=== PATIENT | female | born 1965 | race Caucasian/White ===

== ENCOUNTER 2020-07-23 16:41 | Outpatient (CLI) | payer OTHER, SELFPAY ==
--- NOTE | ~2020-07-23 | XR_ITS ---
EXAMINATION: XR facial bones min 3V EXAM DATE: 07/23/2020 17:38 INDICATION: Laceration to nose, pain behind eyes. TECHNIQUE: Frontal, Slava's, submentovertex and lateral projections of the facial bones. There are n o prior studies for comparison. FINDINGS: There are no acute facial bone fractures or dislocations identified. There is no subcutane ous gas. The soft tissue is unremarkable. There are no radiopaque foreign bodies. No evidence of sinus opacity although please note mild mucoperiosteal thickening is not easily identified on x-ray. IMPRESSION: 1. Unremarkable XR facial bones min 3V exam. Reviewed, dictated and finalized at location A. EMS ENG
== END 2020-07-23 16:42 | disposition home or self-care (01) ==
LOC: ANHLAB 16:43
PROVIDERS: PCP Internal Medicine; Visit Provider Internal Medicine
DX: Z20.822 Contact with and (suspected) exposure to COVID-19 (principal)
CPT/HCPCS: 36415; 70150; 86769

== ENCOUNTER 2020-10-29 12:34 | Emergency (ER) | payer OTHER, SELFPAY ==
--- NOTE | ~2020-10-29 | CT_ITS ---
EXAMINATION: CT cervical spine wo con DATE: 10/29/2020 15:25 INDICATION: Neck pain TECHNIQUE: Computed tomography (CT) of the cervical spine was performed without intravenous contrast. The dose-length product (DLP) was 161.81 mGy-cm. Automated exposure control and iterative reconstruc tion technique were employed. COMPARISON: None FINDINGS: There is straightening of the cervical spine which can be positional or due to muscular spa sm. Bone alignment is normal. There is no fracture. There is moderate loss of intervertebral disc spa ce height from C4-5 through C6-7. The vertebral body heights are maintained. The odontoid is intact. The prevertebral soft tissues are normal. Small degenerative osteophytes project from the anterior en dplates of multiple vertebral bodies. There is mild multilevel facet and uncovertebral joint osteoart hritis. IMPRESSION: 1. Moderate cervical spondylosis without acute findings. Reviewed, dictated and finalized at location B.
--- NOTE | ~2020-10-29 | CT_ITS ---
EXAMINATION: CT brain wo con INDICATION: Headache COMPARISON: None TECHNIQUE: Standard unenhanced head CT. The dose-length product (DLP) was 605.33 mGy-cm. The mA was a djusted according to patient size. Iterative reconstruction technique was employed. FINDINGS: There is no intracranial hemorrhage, acute infarction, or abnormal mass lesion. There is a prominent perivascular space in the left basal ganglia. The ventricles are normal. There is no abnorm al mass effect or midline shift. The pan-white matter differentiation is normal. The basal cisterns are patent. The orbits are normal. The paranasal sinuses, mastoids and calvarium are normal. IMPRESSION: 1. No acute intracranial abnormality. Reviewed, dictated and finalized at location B.
[2020-10-29 12:55] VITALS: BP 149/65; PULSE 62; RESP 18; TEMP 36.5; O2SAT 100
--- NOTE | 2020-10-29 15:09 | ED.HA ---
HPI - Headache General Chief Complaint: Headache Stated Complaint: stiff neck Time Seen by Provider: 10/29/20 14:45 Source: patient Mode of arrival: ambulatory Limitations: no limitations History of Present Illness HPI Narrative: This is a 55 year old female that presents to the ER for headache x 10 days. Associated with neck pain, stiff neck, and nausea. She has not taken anything for headache today. Reports only a mild headache. No known injury or trauma. Denies fever or vomiting. Related Data Allergies Allergy/AdvReac Type Severity Reaction Status Date / Time Sulfa (Sulfonamide Allergy Intermediate Rash Verified 10/29/20 15:14 Antibiotics) latex Allergy Mild RASH Verified 10/29/20 15:14 Penicillins Allergy Mild Rash Verified 08/15/20 11:50 Review of Systems Review of Systems: Narrative: CONSTITUTIONAL: Denies fever, chills EYES: Reports visual changes GASTROINTESTINAL: Reports nausea. Denies vomiting MUSCULOSKELETAL: Reports joint pain, and myalgia. NEUROLOGIC: Reports headache. Denies numbness, or weakness. All systems reviewed & are unremarkable except as noted in HPI and below PMFSH Family History Family History (Updated 08/15/20 @ 11:52 by Mony Bray MA) Father Stomach cancer Mother Cerebrovascular accident Social History Social History (Updated 08/15/20 @ 11:51 by Mony Bray MA) Smoking status: Never smoker Alcohol intake: current Substance use: never Gender identity (if verbalized by the patient): Female Exam Narrative: Exam Narrative: GENERAL: Well-appearing, well-nourished, and in no acute distress. HEAD: Normocephalic, atraumatic. EYES: PERRLA and EOMI. ENT: Nares clear, no rhinorrhea or epistaxis. Mucous membranes moist. Oropharynx without tonsillar hypertrophy exudate or other lesions. Bilateral TMs pearly pan non-bulging NECK: Supple. No adenopathy or masses. Tender to palpation of the trapezius musculature bilaterally CHEST: Clear to auscultation. No respiratory distress. No wheezes rales or rhonchi HEART: Regular rate and rhythm. No murmur heard. Normal peripheral pulses. ABDOMEN: Soft, nontender, nondistended, normal active bowel sounds. EXTREMITIES: Normal range of motion. No edema. SKIN: Warm, dry, no rash. NEURO: No focal deficits. Alert and oriented x3. Cranial nerves II through XII grossly intact. Normal [id number]. Negative Kernig and Brudzinski PSYCH: Normal mood and affect Course Vital Signs Vital signs: Vital Signs Temperature 97.7 F 10/29/20 12:55 Pulse Rate 62 10/29/20 12:55 Respiratory Rate 18 10/29/20 12:55 Blood Pressure 149/65 H 10/29/20 12:55 Pulse Oximetry 100 10/29/20 12:55 Temperature 97.7 F 10/29/20 12:55 Pulse Rate 71 10/29/20 15:14 Respiratory Rate 20 10/29/20 15:14 Blood Pressure 130/80 10/29/20 15:14 Pulse Oximetry 100 10/29/20 15:14 MDM - Headache MDM Narrative Medical decision making narrative: Patient presents to the ER for headaches over the last week and a half was also reporting some neck stiffness. She is afebrile and nontoxic-appearing. Vitals are normal. She is neurologically intact. CBC is without leukocytosis. Metabolic panel without concerning findings. Inflammatory markers are not elevated. CT scan of brain is without acute findings. CT scan of the cervical spine shows moderate cervical spondylosis without acute findings. Does show muscle spasms. Patient was updated on case findings. Did not want any medications to help with her headache or neck pain. Patient will be given muscle relaxer as needed for pain. Was instructed on [id number] medications as needed as well. Patient has concern for coronavirus infection and will be swabbed for this. She is stable and felt appropriate for the outpatient evaluation. She was given warnings to return to the ER Lab Data Attestation: I reviewed the patient's lab results. Result diagrams: 10/29/20 15:46 10/29/20 15:46
[2020-10-29 15:14] VITALS: BP 130/80; PULSE 71; RESP 20; O2SAT 100
[2020-10-29 16:01] LABS: Basophils Percent Auto 0.4 % (0.2-1.2); Eosinophils Absolute Auto 0.2 K/mm3 (0-0.3); Eosinophils Percent Auto 2.5 % (0-4.4); Hematocrit 38.3 % (37.0-47.0); Hemoglobin 12.8 g/dL (12.0-15.0); Immature Granulocyte Absolute 0.02 K/mm3 (0.00-0.031); Immature Granulocyte Percent A 0.3 % (0-0.5); Lymphocytes Absolute Auto 1.33 K/mm3 (0.9-3.2); Lymphocytes Percent Auto 17.5 % (18.3-44.2); Mean Corpuscular HGB Conc 33.4 g/dl (32-36); Mean Corpuscular Hemoglobin 31.8 pg (26-34); Mean Corpuscular Volume 95.3 fl (80-100); Mean Platelet Volume 10.2 fl (7.4-10.4); Monocytes Absolute Auto 0.6 K/mm3 (0.1-0.6); Monocytes Percent Auto 8.2 % (2.6-8.5); Neutrophils Absolute Auto 5.4 K/mm3 (1.3-6.7); Neutrophils Percent Auto 71.1 % (45.5-73.1); Platelet Count Result 295 k/mm3 (150-375); Red Blood Count 4.02 M/mm3 (4.2-5.4); Red Cell Distribution Width 13.8 % (11.5-14.5); White Blood Count 7.6 K/mm3 (4.5-10.0)
[2020-10-29 16:13] LABS: Alanine Aminotransferase 20 U/L (4-35); Albumin Level 4.5 g/dL (3.5-5.1); Alkaline Phosphatase 50 U/L (38-126); Anion Gap 7 mmol/L (8-16); Aspartate Amino Transferase 30 U/L (14-36); Bilirubin,Total 0.8 mg/dL (0.2-1.3); Blood Urea Nitrogen 19 mg/dL (7-17); Calcium 9.4 mg/dL (8.4-10.2); Carbon Dioxide 22 mmol/L (22-30); Chloride 110 mmol/L (98-107); Estimated CRCL calculation 80 ml/min; Estimated Glomerular Filt Rate > 60; Glucose 96 mg/dL (65-105); Potassium 4.5 mmol/L (3.4-5.0); Sodium 139 mmol/L (137-145)
[2020-10-29 16:16] LABS: CRP < 0.5 mg/dL (<1.0); Lipase 106 U/L (23-300)
[2020-10-29 16:31] LABS: Erythrocyte Sedimentation Rate 13 mm/hr (0-20)
--- NOTE | 2020-10-29 16:39 | PC.NURSE ---
pt refusing iv meds for headache at this time
[2020-10-30 21:08] LABS: SARS-CoV-2 RNA PCR Negative
--- NOTE | 2020-11-08 08:57 | PC.NURSE ---
date 10/29/20 @ 1635- pt stable after testing complete. d/c ambulatory after instructions reviewed.
== END 2020-10-29 16:39 | disposition home or self-care (01) ==
PROVIDERS: Physician Assistant; Emergency Provider Emergency Medicine; PCP Internal Medicine
DX: Z20.822 Contact with and (suspected) exposure to COVID-19 (principal); G44.209 Tension-type headache, unspecified, not intractable; R25.2 Cramp and spasm
CPT/HCPCS: 36415; 70450; 72125; 80053; 83690; 85025; 85652; 86140; 99284; C9803; U0003; U0005

== ENCOUNTER 2020-12-20 15:58 | Emergency (ER) | payer OTHER, SELFPAY ==
--- NOTE | ~2020-12-20 | XR_ITS ---
XR chest 2V DATE: 12/20/2020 17:15 INDICATION: Chest pain, neck stiffness. Tingling and numbness of extremities. TECHNIQUE: PA and lateral views COMPARISON: 11/02/2011 two-view chest FINDINGS: There is bilateral hyperinflation. No pulmonary infiltrate or consolidation, pulmonary vas cular congestion, pleural effusion or pneumothorax. Normal heart size. No hilar or mediastinal enla rgement. Included skeletal structures are unremarkable. IMPRESSION: Bilateral hyperinflation; no active cardiopulmonary disease Reviewed, dictated and finalized at location A.
[2020-12-20 16:08] VITALS: BP 128/100; PULSE 81; RESP 18; TEMP 37; O2SAT 98
[2020-12-20 16:30] VITALS: BP 136/106; PULSE 84; RESP 16; O2SAT 99
[2020-12-20 16:50] VITALS: BP 137/83; PULSE 66; RESP 16; O2SAT 99
[2020-12-20 17:00] VITALS: BP 135/89; PULSE 84; RESP 16; O2SAT 99
--- NOTE | 2020-12-20 17:03 | ECG_ITS ---
Measurements Intervals [place]airs Rate: 58 P: 80 CO: 162 QRS: 74 QRSD: 88 T: 55 QT: 432 QTc: 426 Interpretive Statements SINUS BRADYCARDIA CANNOT RULE OUT SEPTAL INFARCT, AGE INDETERMINATE ABNORMAL ECG Electronically Signed On 12-20-2020 20:34:05 CDT by Jimmy Retana D.O.
[2020-12-20 17:46] LABS: Basophils Percent Auto 0.7 % (0.2-1.2); Eosinophils Absolute Auto 0.2 K/mm3 (0-0.3); Hematocrit 37.7 % (37.0-47.0); Hemoglobin 12.4 g/dL (12.0-15.0); Immature Granulocyte Absolute 0.02 K/mm3 (0.00-0.031); Immature Granulocyte Percent A 0.3 % (0-0.5); Lymphocytes Absolute Auto 1.66 K/mm3 (0.9-3.2); Lymphocytes Percent Auto 27.7 % (18.3-44.2); Mean Corpuscular HGB Conc 32.9 g/dl (32-36); Mean Corpuscular Hemoglobin 30.5 pg (26-34); Mean Corpuscular Volume 92.6 fl (80-100); Mean Platelet Volume 9.9 fl (7.4-10.4); Monocytes Absolute Auto 0.6 K/mm3 (0.1-0.6); Monocytes Percent Auto 9.3 % (2.6-8.5); Neutrophils Absolute Auto 3.5 K/mm3 (1.3-6.7); Platelet Count Result 267 k/mm3 (150-375); Red Blood Count 4.07 M/mm3 (4.2-5.4); Red Cell Distribution Width 13.2 % (11.5-14.5)
--- NOTE | 2020-12-20 17:51 | ED.GENADULT ---
HPI - General Adult General Chief complaint: Unspecified Stated complaint: Neck Pain/Arms Heavy Time Seen by Provider: 12/20/20 16:43 Source: patient and RN notes reviewed Mode of arrival: ambulatory Limitations: no limitations History of Present Illness HPI narrative: This is a 55 year old female who presents for evaluation multiple complaints. She states 2 months ago she developed neck stiffness, headache . She also reports intermittent shoulder pain. She states she has difficulty left her shoulder due to pain . She also reports intermittent tingling in her hands. She does not have numbness tingling now. She denies fever, chills, nausea, vomiting, melena. She does reports intermittent abdominal pain. She has been evaluated a couple times for her symptoms over past 2 months. She was evaluated at [place] in October for her symptoms. She had labs which were negative and she even had normal CRP because patient was worried she had inflammatory disease or arteritis or bacterial meningitis. She had a normal CT Brain and she had CT cervical spine that shows chronic disease. She was prescribed flexeril for her neck pain and stiffness. She states she did not get this medication prescribed. Related Data Allergies Allergy/AdvReac Type Severity Reaction Status Date / Time Sulfa (Sulfonamide Allergy Intermediate Rash Verified 10/29/20 15:14 Antibiotics) latex Allergy Mild RASH Verified 10/29/20 15:14 Penicillins Allergy Mild Rash Verified 08/15/20 11:50 Review of Systems Review of Systems: All systems reviewed & are unremarkable except as noted in HPI and below Constitutional: Constitutional: Reports body ache(s), Denies chills and Denies fever(s) Cardiovascular: Cardiovascular: Reports chest pain (intermittent) Respiratory: Respiratory: Denies cough and Denies hemoptysis Gastrointestinal: Gastrointestinal: Reports abdominal pain and Denies melena Musculoskeletal: Musculoskeletal: Reports back pain, Reports arthralgias, Denies numbness and Reports stiffness [facility] [place] Past Medical History Medical History (Updated 12/21/20 @ 00:01 by Chhaya Page) Gluten intolerance Family History Family History (Updated 08/15/20 @ 11:52 by Mony Bray MA) Father Stomach cancer Mother Cerebrovascular accident Social History Social History (Updated 08/15/20 @ 11:51 by Mony Bray MA) Smoking status: Never smoker Alcohol intake: current Substance use: never Gender identity (if verbalized by the patient): Female Exam Narrative: Exam Narrative: GENERAL: Well-appearing, well-nourished, and in no acute distress. HEAD: Normocephalic, atraumatic EYES: PERRLA and EOMI, conjunctiva clear without discharge EARS: TM's clear bilaterally without erythema or dullness THROAT:Mucous membranes moist, Oropharynx normal without erythema, exudate, peritonsillar swelling or fluctuance NECK: Supple, without lymphadenopathy or mass RESPIRATORY: No respiratory distress, Airway patent, Respirations non-labored, Clear to auscultation without rales, rhonchi or wheeze HEART: Regular rate and rhythm. No murmur heard. Normal peripheral pulses. ABDOMEN: Soft, nontender, nondistended, normal active bowel sounds. No masses. No rebound or guarding, No organomegaly. EXTREMITIES: No edema, normal strength with full range of motion. SKIN: Warm, dry, bruising to right hand and left leg NEURO: Alert and oriented x3. CN 2-12 grossly intact. No focal deficits. no arm drift or leg drift, able to squeeze bilateral hands. sensation intact PSYCH: Normal mood and affect. Course Reevaluation(s) Reevaluation #1: I have discussed with patient that labs are unremarkable. She has some neck pain that is likely due to bulging disc in her neck. She has a normal neurologist exam. I reviewed her labs and evaluation from previous ER visit. I have discussed and stressed to patient that she needs to follow up with PCP for further evaluation of s
[2020-12-20 17:56] LABS: Prothrombin Time 13.3 Seconds (11.1-14.7)
[2020-12-20 17:57] LABS: Alanine Aminotransferase 23 U/L (4-35); Albumin Level 4.7 g/dL (3.5-5.1); Alkaline Phosphatase 69 U/L (38-126); Anion Gap 12 mmol/L (8-16); Aspartate Amino Transferase 35 U/L (14-36); Bilirubin,Total 1.3 mg/dL (0.2-1.3); Blood Urea Nitrogen 14 mg/dL (7-17); Calcium 10.1 mg/dL (8.4-10.2); Carbon Dioxide 23 mmol/L (22-30); Chloride 103 mmol/L (98-107); Estimated CRCL calculation 63 ml/min; Estimated Glomerular Filt Rate > 60; Glucose 71 mg/dL (65-105); Lipase 213 U/L (23-300); Partial Thromboplastin Time 29.6 SECONDS (22.3-36.8); Potassium 4.4 mmol/L (3.4-5.0); Sodium 138 mmol/L (137-145)
--- NOTE | 2020-12-20 18:01 | PC.NURSE ---
Did Preg test per RN. Results negative. Control valid
[2020-12-20 18:04] LABS: D Dimer 0.27 ug/mL (<0.48)
[2020-12-20 18:04] LABS: Add Urine Microscopic? YES; Appearance Urine Clear (Clear); Bilirubin Urine Negative (Negative); Blood Urine Negative (Negative); Color Urine Yellow (Yellow); Glucose Urine UA Negative (Negative); Ketones Urine 1+ mg/dL (Negative); Leukocyte Esterase Ur Negative LEU/UL (Negative); Mucus Urine Rare /lpf; Nitrate Urine Negative (Negative); Protein Urine 1+ mg/dL (Negative); RBC Urine 0-2 /hpf (0-2); Specific Grav Ur 1.017 (1.001-1.035); Squamous Epithelial Cell Urine Rare /hpf (Few); Urobilinogen Urine Negative mg/dL (<2.0); WBC Urine 0-3 /hpf
[2020-12-20 18:09] LABS: Troponin I < 0.012 ng/mL (0.000-0.034)
== END 2020-12-20 18:51 | disposition home or self-care (01) ==
PROVIDERS: Emergency Provider General Practice
DX: M79.10 Myalgia, unspecified site (principal); M54.12 Radiculopathy, cervical region; K90.41 Non-celiac gluten sensitivity; R00.1 Bradycardia, unspecified; R94.31 Abnormal electrocardiogram [ECG] [EKG]
CPT/HCPCS: 36415; 71046; 80053; 81001; 83690; 84484; 85025; 85380; 85610; 85730; 93005; 99284

== ENCOUNTER 2021-03-28 09:04 | Outpatient (CLI) | payer OTHER, SELFPAY ==
--- NOTE | ~2021-03-28 | US_ITS ---
EXAMINATION: US abdomen complete DATE: 03/28/2021 09:42 INDICATION: Epigastric pain TECHNIQUE: Multiple grayscale and Doppler ultrasound images of the abdomen were obtained. COMPARISON: None available FINDINGS: The head and body of the pancreas are normal. The pancreatic tail is obscured by bowel gas. The liver is normal with normal echogenicity and echotexture. No surface nodularity. Normal hepatope naun flow in the main portal vein. The gallbladder is normal with no abnormal wall thickening, pericho lecystic fluid or stones. The normal common bile duct measures 2 mm. There was no sonographic Diamond sign. The visualized portions of the aorta and inferior vena cava are normal. The right kidney measures 10.2 x 3.9 x 5.8 cm. The left kidney measures 10.7 x 5.8 x 4.0 cm. The kidn eys demonstrate normal parenchymal echogenicity. There is no hydronephrosis. The spleen is normal in appearance and measures 8.7 cm. IMPRESSION: 1. No sonographic correlate for the patient's symptoms. Reviewed, dictated and finalized at location B.
[2021-03-28 12:29] LABS: Rheumatoid Factor 19.7 IU/ML (<12)
[2021-03-28 14:25] LABS: Erythrocyte Sedimentation Rate 2 mm/hr (0-20)
[2021-03-31 09:34] LABS: ANA Cascade Screen Negative (Negative)
[2021-03-31 09:40] LABS: Tissue Transglutaminase IgG Ab 1 U/mL (<6)
[2021-03-31 20:26] LABS: Anti Nuclear Antibody Pattern Nuclear, Nucleolar
== END 2021-03-28 09:05 | disposition home or self-care (01) ==
LOC: ANHIMG 09:05
PROVIDERS: Nurse Practitioner; PCP Internal Medicine; Visit Provider Internal Medicine Gastroenterology
DX: R10.13 Epigastric pain (principal); G89.29 Other chronic pain; K92.1 Melena; R74.8 Abnormal levels of other serum enzymes
CPT/HCPCS: 36415; 76700; 83516; 84443; 85652; 86038; 86039; 86430

== ENCOUNTER 2021-05-20 00:53 | Day surgery (SDC) | payer OTHER, SELFPAY ==
[2021-05-02 10:24] VITALS: BMI 18.7
--- NOTE | 2021-05-20 12:23 | SUR.PREOP ---
Patient was admitted to pre op. She told me that she had a lot of questions and concerns for Dr. Davidson. The doctor had a long conversation with her and decided to have the office call her to schedule a different procedure on a different date. Patient was then discharged and instructed to follow up with the office.
== END 2021-05-20 11:20 | disposition home or self-care (01) ==
PROVIDERS: PCP Internal Medicine; Visit Provider Internal Medicine Gastroenterology
PROC: (CPT 46930; principal; 2021-05-20 11:00)
DX: R10.13 Epigastric pain (principal)
CPT/HCPCS: 99211; G0463; J7120

== ENCOUNTER → 2021-06-21 00:13 | Outpatient (CLI) | payer OTHER, SELFPAY ==
[2021-06-21 18:55] LABS: SARS-CoV-2 RNA PCR Negative
== END ==
PROVIDERS: PCP Internal Medicine; Visit Provider Internal Medicine Gastroenterology
DX: Z01.812 Encounter for preprocedural laboratory examination (principal); Z20.822 Contact with and (suspected) exposure to COVID-19
CPT/HCPCS: C9803; U0003; U0005

== ENCOUNTER 2021-06-25 00:55 | Day surgery (SDC) | payer OTHER, SELFPAY ==
[2021-06-10 13:05] VITALS: BMI 19.1
[2021-06-25 08:08] VITALS: BP 114/71; PULSE 66; RESP 16; TEMP 36.4; O2SAT 100
[2021-06-25] MEDS: LACTATED RINGERS 1,000 ML 150 ML IV CONT (08:18)
--- NOTE | 2021-06-25 08:31 | WPDANESEPPF ---
Anes - Initial Pre Proc Eval Procedure: Operation Date: 06/25/21 09:00 Proposed Procedures p Flexible Sigmoidoscopy - Yobani Hawthorne MD s [facility] Hemorrhoid Treatment - Yobani Hawthorne MD Date/Time: 06/25/21 08:31 Surgeon: Yobani Hawthorne MD Pre Op Diagnosis: Rectal Bleeding Patient Data Age: 56 Gender: F Height: 1.65 m Weight: 51.9 kg Last Vital Signs Temp 97.6 F 06/25/21 08:08 Pulse 66 06/25/21 08:08 Resp 16 06/25/21 08:08 BP 114/71 06/25/21 08:08 Pulse Ox 100 06/25/21 08:08 Allergies Allergy/AdvReac Type Severity Reaction Status Date / Time Sulfa (Sulfonamide Allergy Intermediate Rash Verified 06/25/21 08:06 Antibiotics) latex Allergy Mild RASH Verified 06/25/21 08:06 Penicillins Allergy Mild Rash Verified 06/25/21 08:06 Home Medications Medication Instructions Recorded Confirmed Type No Home Medications 04/24/21 06/25/21 History Patient hx anesthesia problems: none Family hx anesthesia problems: none Results Review: All pre-operative results and documents have been reviewed as part of the pre-operative evaluation. [facility] Past Medical History Medical History (Updated 04/24/21 @ 15:31 by Yobani Hawthorne MD) LARA positive Anxiety Epigastric pain Gluten intolerance Hemorrhoid Surgical History Surgical History S/P Family History Family History Father Stomach cancer Mother Cerebrovascular accident Social History Social History Smoking status: Never smoker Alcohol intake: current Drinks per week: 2 Substance use: never Substance use type: does not use Living arrangements: alone Gender identity (if verbalized by the patient): Female Spiritual care concerns: No Anes - Eval Final PreProcedure Day of Procedure 06/25/21 08:31 Patient weight: normal Heart: regular rate and rhythm Lungs: clear to auscultation Airway: Mallampati scale class II Neurological: alert and oriented Last oral intake: >/= 8 hours ASA classification: II Emergent: no Anesthetic plan: proceed Anesthesia type and monitoring: general GIVS and standard monitoring Results Review: All pre-operative results and documents have been reviewed as part of the pre-operative evaluation. Informed Consent: The patient's anesthetic plan and its attendant risks and benefits were discussed with the patient/family/POA. Questions were solicited and answers provided to the satisfaction of the patient/family/POA.
--- NOTE | 2021-06-25 08:45 | PM.HPGS ---
History of Present Illness History of Present Illness Consent: Risks, benefits, and alternatives have been discussed and questions answered. Patient agrees to proceed with procedure. Chief complaint: Rectal Bleeding Narrative: Charis Troncoso is a 56 year old female here for sigmoidoscopy and IRC. She was seen by Dr Parish Lazcano because abdominal pain and blood in stools, had EGD and colonoscopy (records reviewed and unremarkable findings, suggested functional symptoms and probably hemorrhoids). Review of Systems Constitutional: Constitutional: Denies headache(s) and Denies weakness Eyes: Eyes: Denies blurry vision ENT: Reports Normal hearing present, Denies headache(s) and Denies neck pain Cardiovascular: Cardiovascular: Denies chest pain and Denies dyspnea Respiratory: Respiratory: Denies dyspnea Gastrointestinal: Gastrointestinal: Reports no additional gastrointestinal complaints Genitourinary: Genitourinary: Denies dysuria Musculoskeletal: Musculoskeletal: Denies neck pain Integumentary/Breasts: Skin/Breast: Denies dry skin Neurologic: Reports Normal hearing present, Denies headache(s) and Denies weakness Psychiatric: Psychiatric: Denies anxiety Endocrine: Endocrine: Denies change in body appearance Hematologic/Lymphatic: Hematologic/Lymphatic: Denies easy bleeding Allergic/Immunologic: Allergic/Immunologic: Denies urticaria PMFSH Past Medical History Medical History (Updated 06/25/21 @ 08:46 by Yobani Hawthorne MD) LARA positive Anxiety Epigastric pain Gluten intolerance Hemorrhoid IBS (irritable bowel syndrome) Surgical History Surgical History S/P Family History Family History Father Stomach cancer Mother Cerebrovascular accident Social History Social History Smoking status: Never smoker Alcohol intake: current Drinks per week: 2 Substance use: never Substance use type: does not use Living arrangements: alone Gender identity (if verbalized by the patient): Female Spiritual care concerns: No Meds Home Medications and Allergies Home Medications Medication Instructions Recorded Confirmed Type No Home Medications 04/24/21 06/25/21 History Allergies Allergy/AdvReac Type Severity Reaction Status Date / Time Sulfa (Sulfonamide Allergy Intermediate Rash Verified 06/25/21 08:06 Antibiotics) latex Allergy Mild RASH Verified 06/25/21 08:06 Penicillins Allergy Mild Rash Verified 06/25/21 08:06 Vital Signs Vital Signs - 24 hr 06/25/21 08:08 Temperature 97.6 F Pulse Rate 66 Respiratory Rate 16 Blood Pressure 114/71 Pulse Oximetry 100 Exam Const: General: comfortable and no acute distress HENMT: General nose exam: Normal nares present Eyes: General: appearance normal, both eyes and all related structures Neck: Neck: no JVD Resp: Auscultation: clear to auscultation bilaterally Cardio: Rate: regular rate Rhythm: regular rhythm GI: Inspection: non-distended GI Palp: Yes Soft to palpation Skin: General skin exam: normal color Neuro: General: gait normal Speech: normal speech Extrem: General: normal to inspection Psych: Mental Status: mental status grossly normal Assessment and Plan Assessment and plan (1) Hemorrhoid: Code(s): K64.9 - Unspecified hemorrhoids Status: Acute Assessment and Plan: irc (2) Bloody stool: Code(s): K92.1 - Melena Status: Acute Assessment and Plan: will assess with sigmoidoscopy (3) IBS (irritable bowel syndrome): Code(s): K58.9 - Irritable bowel syndrome without diarrhea Status: Acute
[2021-06-25 09:07] VITALS: BP 117/75; PULSE 85; RESP 18; O2SAT 100
--- NOTE | 2021-06-25 09:08 | W.PM.PROC2 ---
Procedure Note - Detailed Date of Procedure 06/25/21 Pre-op Diagnosis Rectal Bleeding Post-op Diagnosis same Procedure Performed IRC (infrared coagulation) Surgeon Yobani Hawthorne MD Indications internal hemorrhoids Findings internal hemorrhoids grade 2 Description of Procedure rectal exam showed external hemorrhoids, no fissure, no lesions. Patient was still under anesthesia from recent sigmoidoscopy. Then I introduced anoscope and found grade 2 internal hemorrhoids located at 3-6 o'clock position, then IRC probe was advanced and hemorrhoids treated 5 times, 1.5 seconds each. No complications. Complications No immediate complications Condition stable
[2021-06-25 09:17] VITALS: BP 114/75; PULSE 67; RESP 14; O2SAT 100
[2021-06-25 09:27] VITALS: BP 136/99; PULSE 71; RESP 22; O2SAT 100
== END 2021-06-25 09:38 | disposition home or self-care (01) ==
PROVIDERS: PCP Internal Medicine; Visit Provider Internal Medicine Gastroenterology
PROC: 0DJD8ZZ Inspection of Lower Intestinal Tract, Via Natural or Artificial Opening Endoscopic (ICD-10-PCS; CPT 45330; principal; 2021-06-25 09:00)
PROC: (CPT 46930; 2021-06-25 09:00)
DX: K92.1 Melena (principal); K63.5 Polyp of colon; K64.1 Second degree hemorrhoids; K57.30 Diverticulosis of large intestine without perforation or abscess without bleeding; K58.9 Irritable bowel syndrome, unspecified
CPT/HCPCS: 45338; 46930; 88305; J2704; J7120

== ENCOUNTER 2021-12-24 12:35 | Emergency (ER) | payer OTHER, SELFPAY ==
--- NOTE | ~2021-12-24 | XR_ITS ---
EXAMINATION: XR elbow RT min 3V DATE: 12/24/2021 13:09 INDICATION: Right elbow injury and pain and swelling. TECHNIQUE: 5 views of right elbow were obtained. COMPARISON: None. FINDINGS: There is a fracture of radial head involving the lateral 40% of the articular surface in ne ar-anatomic alignment. Joint spaces are normal. There is an elbow joint effusion. IMPRESSION: 1. Radial head fracture. 2. Elbow joint effusion. Reviewed, dictated and finalized at location A.
[2021-12-24 12:46] VITALS: BP 142/72; PULSE 50; RESP 22; TEMP 36.6; O2SAT 100
--- NOTE | 2021-12-24 13:39 | ED.UPPEXIN ---
HPI - Extremity Injury (Upper) General Chief Complaint: Extremity Injury, Upper Stated Complaint: elbow pain Time Seen by Provider: 12/24/21 12:56 History of Present Illness HPI narrative: 56-year-old female presents to the emergency room complaints of right elbow pain following a fall 4 days ago. Patient states that she tripped and fell over a box when she was attempting to move it, landing directly on her right elbow. Patient noticed swelling and bruising with limited range of motion to the elbow immediately following the injury. Related Data Home Medications Medication Instructions Recorded Confirmed multivitamin with iron 1 tablet PO DAILY 12/24/21 Allergies Allergy/AdvReac Type Severity Reaction Status Date / Time Sulfa (Sulfonamide Allergy Intermediate Rash Verified 12/24/21 11:28 Antibiotics) latex Allergy Mild RASH Verified 12/24/21 11:28 Penicillins Allergy Mild Rash Verified 12/24/21 11:28 Review of Systems Review of Systems: CONSTITUTIONAL: Denies fever, chills, or sweats. EYES: Denies visual changes, redness, or discharge. ENT: Denies rhinorrhea, congestion, sore throat, or otalgia. CARDIOVASCULAR: Denies chest pain, palpitations, or edema. RESPIRATORY: Denies cough or dyspnea. GASTROINTESTINAL: Denies abdominal pain, nausea, vomiting, or diarrhea. GENITOURINARY: Denies dysuria or hematuria. SKIN: Denies rash or itching. MUSCULOSKELETAL: Reports right elbow pain NEUROLOGIC: Denies headache, numbness, dizziness, or weakness. PSYCHIATRIC: Denies anxiety or depression. [facility] Past Medical History Medical History LARA positive LARA positive Anxiety Epigastric pain Gluten intolerance Hemorrhoid IBS (irritable bowel syndrome) Right elbow pain Trauma Surgical History Surgical History S/P Family History Family History Father Stomach cancer Mother Cerebrovascular accident Social History Social History Smoking status: Never smoker Alcohol intake: current Drinks per week: 2 Substance use: never Substance use type: does not use Gender identity (if verbalized by the patient): Female Spiritual care concerns: No Exam Narrative: GENERAL: Well-appearing, well-nourished, and in no acute distress. HEAD: Normocephalic, atraumatic. EYES: PERRLA and EOMI. ENT: Nares clear, no rhinorrhea or epistaxis. Mucous membranes moist. Oropharynx without tonsillar hypertrophy exudate or other lesions. Bilateral TMs pearly pan nonbulging NECK: Supple. No adenopathy or masses. No carotid bruits or JVD CHEST: Clear to auscultation. No respiratory distress. No wheezes rales or rhonchi HEART: Regular rate and rhythm. No murmur heard. Normal peripheral pulses. ABDOMEN: Soft, nontender, nondistended, normal active bowel sounds. EXTREMITIES: Right elbow: Tenderness, swelling olecranon process, ecchymosis noted diffusely over the elbow, range of motion limited with flexion extension, supination and pronation of the elbow, neurovascular is intact distally SKIN: Warm, dry, no rash. NEURO: No focal deficits. Alert and oriented x3. PSYCH: Normal mood and affect. Course Vital Signs Vital signs: Vital Signs Temperature 36.6 C 12/24/21 12:46 Pulse Rate 50 L 12/24/21 12:46 Respiratory Rate 22 H 12/24/21 12:46 Blood Pressure 142/72 H 12/24/21 12:46 Pulse Oximetry 100 12/24/21 12:46 Temperature 36.8 C 12/24/21 14:24 Pulse Rate 84 12/24/21 14:24 Respiratory Rate 16 12/24/21 14:24 Blood Pressure 134/80 12/24/21 14:24 Pulse Oximetry 100 12/24/21 14:24 Discharge Plan Discharge Clinical Impression: Closed fracture of right elbow Patient Disposition: Home, Self-Care Condition: Stable Instructions: Antibiotic Form Additional I
--- NOTE | 2021-12-24 14:13 | PC.NURSE ---
LONG POSTERIOR ARM SPLINT APPLIED
[2021-12-24 14:24] VITALS: BP 134/80; PULSE 84; RESP 16; TEMP 36.8; O2SAT 100
== END 2021-12-24 14:26 | disposition home or self-care (01) ==
PROVIDERS: Emergency Provider Nurse Practitioner Family; PCP Internal Medicine
DX: S52.121A Displaced fracture of head of right radius, initial encounter for closed fracture (principal); K58.9 Irritable bowel syndrome, unspecified; K90.41 Non-celiac gluten sensitivity; W18.09XA Striking against other object with subsequent fall, initial encounter
CPT/HCPCS: 29105; 73080; 99284; A4565

== ENCOUNTER 2022-01-23 14:06 | Outpatient (CLI) | payer OTHER, SELFPAY ==
--- NOTE | ~2022-01-23 | XR_ITS ---
XR hip RT 2V w AP pelvis 01/23/2022 14:28 Indication: Right hip pain Procedure: 3 views right hip pain including AP pelvis Comparison: No prior studies for comparison. Findings: There is anatomic alignment. No fracture, subluxation or dislocation. Pelvic rings are inta ct. Sacral foramen are symmetric. No significant joint space narrowing. Impression: 1: No significant bone or joint abnormality. Reviewed, dictated and finalized at location A. Impression: 1: No significant bone or joint abnormality.
--- NOTE | ~2022-01-23 | XR_ITS ---
XR knee RT min 4V DATE: 01/23/2022 14:28 INDICATION: Right knee pain TECHNIQUE: 4 views COMPARISON: None FINDINGS: No fracture or dislocation or joint effusion. No periosteal reaction or bone destruction. J oint spaces are preserved. No radiopaque intra-articular loose body or chondrocalcinosis. IMPRESSION: Negative Reviewed, dictated and finalized at location A. IMPRESSION: Negative
== END 2022-01-23 14:07 | disposition home or self-care (01) ==
PROVIDERS: PCP Internal Medicine; Visit Provider Orthopaedic Surgery
DX: M25.551 Pain in right hip (principal); M25.561 Pain in right knee
CPT/HCPCS: 73502; 73564

== ENCOUNTER → 2022-03-26 | Emergency (ER) | payer OTHER, SELFPAY ==
[2022-03-26 14:21] VITALS: BP 131/76; PULSE 67; RESP 16; TEMP 37.3; O2SAT 99
[2022-03-26 15:03] VITALS: RESP 18; O2SAT 99
--- NOTE | 2022-03-26 15:27 | ED.GENADULT ---
HPI - General Adult General Chief complaint: Unspecified Stated complaint: hives Time Seen by Provider: 03/26/22 14:52 History of Present Illness HPI narrative: 56-year-old female presents to the emergency room for evaluation of a vesicular rash on her left thumb and left ankle. Patient states the rash has been there for 4 weeks. Patient is concerned that she has monkey box despite any exposure. Denies swollen lymph nodes denies intercourse with homosexual men, denies rash on her rectum or genitalia. Denies fevers. Related Data Allergies Allergy/AdvReac Type Severity Reaction Status Date / Time Sulfa (Sulfonamide Allergy Intermediate Rash Verified 03/26/22 14:18 Antibiotics) latex Allergy Mild RASH Verified 03/26/22 14:18 Penicillins Allergy Mild Rash Verified 03/26/22 14:18 Review of Systems Review of Systems: CONSTITUTIONAL: Denies fever, chills, or sweats. EYES: Denies visual changes, redness, or discharge. ENT: Denies rhinorrhea, congestion, sore throat, or otalgia. CARDIOVASCULAR: Denies chest pain, palpitations, or edema. RESPIRATORY: Denies cough or dyspnea. GASTROINTESTINAL: Denies abdominal pain, nausea, vomiting, or diarrhea. GENITOURINARY: Denies dysuria or hematuria. SKIN: Reports rash MUSCULOSKELETAL: Denies back pain, joint pain, or myalgia. NEUROLOGIC: Denies headache, numbness, dizziness, or weakness. PSYCHIATRIC: Denies anxiety or depression. [facility] Past Medical History Medical History LARA positive LARA positive Anxiety Epigastric pain Fracture of radial neck, right, closed Gluten intolerance Hemorrhoid IBS (irritable bowel syndrome) Patella fracture Right elbow pain Trauma Trochanteric bursitis of right hip Vertigo Vision changes Surgical History Surgical History Lipoma excision 2014 S/P Family History Family History Father Stomach cancer Mother Cerebrovascular accident Other Heart disease Social History Social History Smoking status: Former smoker Tobacco type: cigarettes Additional smoking assessment comments: Quit smoking in 2000 Alcohol intake: current Drinks per week: 2 Substance use: current Substance use type: marijuana Gender identity (if verbalized by the patient): Female Spiritual care concerns: No Exam Narrative: GENERAL: Well-appearing, well-nourished, no physical limitations, and in no acute distress. HEAD: Normocephalic, atraumatic. EYES: Conjunctivae normal, PERRLA and EOMI. ENT: External nose normal, Nares clear, no rhinorrhea or epistaxis. Mucous membranes moist. Oropharynx without tonsillar hypertrophy exudate or other lesions. External ears normal, bilateral TMs normal bilaterally NECK: Supple. No adenopathy or masses. CHEST: Clear to auscultation. No respiratory distress. No wheezes rales or rhonchi. HEART: Regular rate and rhythm. No murmur heard. Normal peripheral pulses. ABDOMEN: Soft, nontender, nondistended, normal active bowel sounds. EXTREMITIES: Normal range of motion. No edema. No clubbing or cyanosis SKIN: 6 single vesicular lesion on the external surface of left ankle, keratotic lesion on her left thumb NEURO: No focal deficits. Alert and oriented x3. MAEW. CN's II-XI intact bilaterally, normal gait PSYCH: Cooperative. Normal mood and affect. Course Vital Signs Vital signs: Vital Signs Temperature 37.3 C 03/26/22 14:21 Pulse Rate 67 03/26/22 14:21 Respiratory Rate 16 03/26/22 14:21 Blood Pressure 131/76 03/26/22 14:21 Pulse Oximetry 99 03/26/22 14:21 Temperature 37.3 C 03/26/22 14:21 Pulse Rate 67 03/26/22 14:21 Respiratory Rate 18 03/26/22 15:03 Blood Pressure 131/76 03/26/22 14:21 Pulse Oximetry 99 03/26/22 15:03 Medical Decision Sunil
== END | disposition home or self-care (01) ==
PROVIDERS: Emergency Provider Nurse Practitioner Family; PCP Internal Medicine
DX: L98.9 Disorder of the skin and subcutaneous tissue, unspecified (principal); Z20.89 Contact with and (suspected) exposure to other communicable diseases; K58.9 Irritable bowel syndrome, unspecified; K90.41 Non-celiac gluten sensitivity; Z87.891 Personal history of nicotine dependence
CPT/HCPCS: 36415; 87593; 99283

== ENCOUNTER 2023-12-18 13:50 | Outpatient (CLI) | payer OTHER, SELFPAY ==
[2023-12-18 14:13] LABS: Basophils Percent Auto 0.7 % (0.2-1.2); Eosinophils Absolute Auto 0.1 K/mm3 (0-0.3); Eosinophils Percent Auto 1.7 % (0-4.4); Hematocrit 39.9 % (37.0-47.0); Hemoglobin 13.3 g/dL (12.0-15.0); Immature Granulocyte Absolute 0.01 K/mm3 (0.00-0.031); Immature Granulocyte Percent A 0.2 % (0-0.5); Lymphocytes Absolute Auto 1.54 K/mm3 (0.9-3.2); Lymphocytes Percent Auto 28.7 % (18.3-44.2); Mean Corpuscular HGB Conc 33.3 g/dl (32-36); Mean Corpuscular Hemoglobin 31.2 pg (26-34); Mean Corpuscular Volume 93.7 fl (80-100); Mean Platelet Volume 10.2 fl (7.4-10.4); Monocytes Absolute Auto 0.4 K/mm3 (0.1-0.6); Monocytes Percent Auto 6.5 % (2.6-8.5); Neutrophils Absolute Auto 3.3 K/mm3 (1.3-6.7); Neutrophils Percent Auto 62.2 % (45.5-73.1); Platelet Count Result 292 k/mm3 (150-375); Red Blood Count 4.26 M/mm3 (4.2-5.4); Red Cell Distribution Width 14.1 % (11.5-14.5); White Blood Count 5.4 K/mm3 (4.5-10.0)
[2023-12-18 14:26] LABS: Alanine Aminotransferase 16 U/L (6-35); Albumin Level 5.1 g/dL (3.5-5.1); Alkaline Phosphatase 63 U/L (38-126); Anion Gap 9 mmol/L (4-12); Aspartate Amino Transferase 25 U/L (14-36); Bilirubin,Total 1.5 mg/dL (0.2-1.3); Blood Urea Nitrogen 10 mg/dL (7-17); Carbon Dioxide 25 mmol/L (22-30); Chloride 104 mmol/L (98-107); Cholesterol 311 mg/dL (0-200); Estimated Glomerular Filt Rate > 60; Glucose 80 mg/dL (65-110); Sodium 138 mmol/L (137-145); Triglycerides 74 mg/dL (<150)
[2023-12-18 14:32] LABS: HDL Direct 116 mg/dL
[2023-12-18 14:34] LABS: LDL Cholesterol Direct 141 mg/dL
[2023-12-18 15:20] LABS: Iron 91 ug/dL (37-170)
[2023-12-18 15:30] LABS: Percent Iron Saturation 30 % (20-50)
[2023-12-18 15:36] LABS: Vitamin D 25 Hydroxy 19.6 ng/mL
[2023-12-20 15:33] LABS: Lyme Disease Ab (IgM), Blot NEGATIVE (NEGATIVE); Lyme Disease Ab(IgG), Blot NEGATIVE (NEGATIVE)
== END 2023-12-18 13:51 | disposition home or self-care (01) ==
PROVIDERS: PCP Internal Medicine; Visit Provider Clinical Nurse Specialist
DX: R74.8 Abnormal levels of other serum enzymes (principal); Z13.220 Encounter for screening for lipoid disorders; F41.9 Anxiety disorder, unspecified; E55.9 Vitamin D deficiency, unspecified; Z13.228 Encounter for screening for other metabolic disorders
CPT/HCPCS: 36415; 80053; 80061; 82306; 82607; 82728; 83540; 83550; 84443; 85025; 86617

== ENCOUNTER 2024-01-17 10:42 | Outpatient (CLI) | payer OTHER, SELFPAY ==
--- NOTE | ~2024-01-17 | US_ITS ---
EXAMINATION: US venous doppler LE RT DATE: 01/17/2024 11:40 INDICATION: Lower limb pain. Other specified soft tissue disorder. TECHNIQUE: Grayscale ultrasound images without and with compression and Doppler ultrasound images of the right lower extremity veins were obtained. COMPARISON: None. FINDINGS: The visualized portions of right common femoral vein, profunda (deep) femoral vein, femoral vein, pop liteal vein, posterior tibial veins, peroneal veins, gastrocnemius vein and greater saphenous vein ou tflow are patent. IMPRESSION: 1. No deep venous thrombosis in the right lower limb. Reviewed, dictated and finalized at location B.
--- NOTE | ~2024-01-17 | US_ITS ---
EXAMINATION: US carotid duplex BI DATE: 01/17/2024 11:39 INDICATION: Cerebral and carotid atherosclerosis. TECHNIQUE: Grayscale, color Doppler, and pulsed Doppler images of the cervical carotid arteries were obtained. The degree of vessel stenosis is placed in one of the following categories: normal, <50%, 5 0-69%, >=70% but less than near-occlusion, near-occlusion, or total occlusion. Note that percent sten osis relative to normal distal artery lumen diameter is indirectly measured from velocity measurement s as described by Maximino, et al. Radiology 2003; 229:340-346. COMPARISON: CT dated 10/29/2020 FINDINGS: RIGHT: The right common carotid artery (CCA) peak systolic velocity (PSV) is 82 cm/s. The right internal car otid artery (ICA) PSV is 84 cm/s. The right ICA end-diastolic velocity (EDV) is 24 cm/s. The right IC A/CCA PSV ratio is 1.0. Grayscale and color Doppler images yield an estimate of <50% diameter reducti on from plaque in the ICA. The external carotid artery (ECA) PSV is 167 cm/s. There is antegrade flow in the right vertebral artery. LEFT: The left CCA PSV is 94 cm/s. The left ICA PSV is 85 cm/s. The left ICA EDV is 24 cm/s. The left ICA/C CA PSV ratio is 0.9. Grayscale and color Doppler images yield an estimate of <50% diameter reduction from plaque in the ICA. The ECA PSV is 69 cm/s. There is antegrade flow in the left vertebral artery. IMPRESSION: 1. <50% stenosis in the right internal carotid artery. 2. <50% stenosis in the left internal carotid artery. Reviewed, dictated and finalized at location B.
== END 2024-01-17 10:43 | disposition home or self-care (01) ==
LOC: ANHIMG 10:44
PROVIDERS: PCP Internal Medicine; Visit Provider Clinical Nurse Specialist
DX: M79.89 Other specified soft tissue disorders (principal); Z82.3 Family history of stroke; Z82.49 Family history of ischemic heart disease and other diseases of the circulatory system; I65.23 Occlusion and stenosis of bilateral carotid arteries
CPT/HCPCS: 93880; 93971

== ENCOUNTER 2024-04-05 14:16 | Emergency (ER) | payer OTHER, SELFPAY ==
--- NOTE | ~2024-04-05 | XR_ITS ---
EXAMINATION: XR chest 2V DATE: 04/05/2024 14:52 INDICATION: Cough and congestion. TECHNIQUE: Frontal and lateral views of the chest were obtained. COMPARISON: Chest 2 views 12/20/2020 FINDINGS: There is no pneumonia, pleural effusion, or pneumothorax. The heart size is normal. IMPRESSION: 1. No acute cardiopulmonary disease. Reviewed, dictated and finalized at location A.
[2024-04-05 14:23] VITALS: BP 140/70; PULSE 68; RESP 16; TEMP 36.6; O2SAT 100
--- NOTE | 2024-04-05 14:34 | ED.URI ---
HPI - URI/Sore Throat General Chief Complaint: Upper Respiratory Infection Stated Complaint: COUGH/CONGESTION/FEVER/HEADACHE/DIARRHEA/SWEATS Time Seen by Provider: 04/05/24 14:36 Source: patient Mode of arrival: ambulatory Limitations: no limitations History of Present Illness HPI Narrative: 58 year old female who presents to [facility] with complaints of 4 day history of hacking cough, headache, some diarrhea yesterday with some nausea and vomiting, states unknown if any fever. Patient reports that she has been expectorating some thick yellowish mucous with her cough, denies any shortness of breath. Patient reports that she is concerned for COVID and pneumonia and wants testing done. Patient reports that she needs to get back to work but wanted to make sure she was not contagious. MD elicited complaint: cough and other (headache, diarrhea, [place] and vomiting.) Onset (ago): day(s) (4) Consistency: constant Description of mucous: yellow Able to tolerate fluids by mouth: Yes Treatments prior to arrival: none Related Data Allergies Allergy/AdvReac Type Severity Reaction Status Date / Time Sulfa (Sulfonamide Allergy Intermediate Rash Verified 04/05/24 14:34 Antibiotics) latex Allergy Mild RASH Verified 04/05/24 14:34 Penicillins Allergy Mild Rash Verified 04/05/24 14:34 Review of Systems Review of Systems: CONSTITUTIONAL: Reports some malaise,no chills, sweats, or fever. EYES: Denies visual changes, redness, or discharge. ENT: Reports rhinorrhea, congestion, sinus pain, no otalgia and no sore throat. CARDIOVASCULAR: Denies chest pain, palpitations, or edema. RESPIRATORY: Reports cough.? Denies dyspnea. GASTROINTESTINAL: Denies abdominal pain, yesterday nausea, vomiting, diarrhea, none today SKIN: Denies rash or itching. MUSCULOSKELETAL: Denies myalgia. NEUROLOGIC: Reports some headache. All systems reviewed & are unremarkable except as noted in HPI and below PMFSH Past Medical History Medical History LARA positive LARA positive Anxiety Epigastric pain Fracture of radial neck, right, closed Gluten intolerance Hemorrhoid IBS (irritable bowel syndrome) Patella fracture Right elbow pain Trauma Trochanteric bursitis of right hip Vertigo Vision changes Surgical History Surgical History Lipoma excision 2014 S/P Family History Family History Father Stomach cancer Mother Cerebrovascular accident Other Heart disease Social History Social History Smoking status: Former smoker Tobacco type: cigarettes Additional smoking assessment comments: Quit smoking in 2000 Alcohol intake: current Drinks per week: 2 Substance use: current Substance use type: marijuana Lack of Transportation: YES Lack of Food: Sometimes True Current Housing: I Have Housing Concerned About Future Housing: YES Difficulty Paying Gas/Electric Bills: No Difficulty Paying for Meds: No Currently Unemployed: YES Education: High School Diploma/GED Difficulty w/ Childcare or Family Care: No Living arrangements: alone Occupation/Education: unemployed Gender identity (if verbalized by the patient): Female Spiritual care concerns: No Comments At time of signature, agree with nursing past medical, surgical, social and family history. There is no relevant family history pertinent to the presenting complaint Exam Narrative: GENERAL: Well-appearing, well-nourished, and in no acute distress. HEAD: Normocephalic EYES: PERRLA, conjunctivae clear ENT: Nares clear, turbinates edematous and erythematous, clear nasal discharge. Mucous membranes moist. TM pearly pan with dull light reflex bilaterally; no tragal tenderness. Oropharynx erythematous without lesions.
[2024-04-05 14:53] LABS: EDCOVIDSCREEN Negative (Negative)
== END 2024-04-05 15:08 | disposition home or self-care (01) ==
PROVIDERS: Emergency Provider Registered Nurse; PCP Internal Medicine
DX: J06.9 Acute upper respiratory infection, unspecified (principal); Z20.822 Contact with and (suspected) exposure to COVID-19; Z87.891 Personal history of nicotine dependence
CPT/HCPCS: 71046; 87635; 99213; G0463

== ENCOUNTER 2024-08-29 14:32 | Emergency (ER) | payer OTHER, SELFPAY ==
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
[2024-08-29 14:42] VITALS: BP 162/80; PULSE 87; RESP 16; TEMP 36.3; O2SAT 100
== END 2024-08-29 14:58 | disposition home or self-care (01) ==
PROVIDERS: Emergency Provider Nurse Practitioner; PCP Internal Medicine
DX: S01.81XD Laceration without foreign body of other part of head, subsequent encounter (principal); W50.0XXD Accidental hit or strike by another person, subsequent encounter; Z87.891 Personal history of nicotine dependence
CPT/HCPCS: 99211; G0463